=== PATIENT | male | born 1985 | race Caucasian/White ===

== ENCOUNTER 2017-04-26 11:17 | Emergency (ER) | payer SELFPAY ==
[~2017-04-26] VITALS: Ht 162.6 cm; Wt 74.9 kg
[~2017-04-26 11:17] MED LIST: ATEN25TA PO; CEFP250T2 PO; CIPR500T4 PO; CLON1TAB36 PO; DIVA250T4 PO; HYOS-6 PO; INDO25CA PO; INDO50CA PO; KETO75CA PO; LEVE500T PO; LURA40TA PO; METO25TA PO; MTP25TSR PO; NAPR-243 PO; OXYC-473 PO; PENI500T PO; PHEN-639 PO; PRD20T PO; SULF1TAB35 PO; TAMS0.4C98 PO; TRAM50TA2 PO; flexeril PO
--- OUTSIDE RECORDS SUMMARY | 2017-04-26 11:24 | XMS REPORT | Continuity of Care Document ---
Author Author [employer] Organization [facility] Address Unknown Phone Unavailable Care Team Providers Care Bronze Plater Name Role Phone [employer] Unavailable Unavailable Problems Medications Allergies, Adverse Reactions, Alerts Immunizations Results Vital Signs Encounters Location Location Details Encounter Type Encounter Number Reason For Visit Attending Provider ADM Date DC Date Status Source O Active [facility] Procedures Plan of Care Social History Assessment and Plan Family History Advance Directives Functional Status
--- OUTSIDE RECORDS SUMMARY | 2017-04-26 11:24 | XMS REPORT ---
Author Author MOLINA DUARTE [facility] [employer] Address Unknown Phone Unavailable Care Team Providers Care Manager Hospitality Name Role Phone MOLINA DUARTE CP Unavailable Allergies, Adverse Reactions, Alerts Substance Reaction Event Type N.K.D.A. 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 Active Problem Essential hypertension I10 Active Problem Pyelonephritis N12 Active Assessment Chest pain R07.9 Active Assessment Essential hypertension I10 Active Problem Attention deficit disorder of childhood without mention of hyperactivity 314.00 Active Medications Medication Code System Code Instructions Start Date End Date Status Dosage Atenolol [facility] NAMED [facility] [address]-09 50mg Orally twice a day 1 tablet Procedures Procedure Coding System Code Date COMPREHEN METABOLIC PANEL CPT-4 03192 Mar 25, 2015 ASSAY THYROID STIM HORMONE CPT-4 26325 Mar 25, 2015 COMPLETE CBC W/AUTO DIFF WBC CPT-4 52381 Mar 25, 2015 Office Visit, Est Pt., Level 4 CPT-4 72976 Mar 25, 2015 LIPID PANEL CPT-4 98932 Mar 25, 2015 ASSAY OF MAGNESIUM CPT-4 73189 Mar 25, 2015 VENIPUNCT, ROUTINE* CPT-4 79645 Mar 25, 2015 ELECTROCARDIOGRAM, TRACING CPT-4 00558 Mar 25, 2015 Vital Signs Date/Time: Mar 25, 2015 Temperature 98.3 F Weight 170.2 lbs Height 65.5 in BMI 27.89 Index Blood Pressure Diastolic 90 mmHg Blood Pressure Systolic 118 mmHg Cardiac Monitoring Heart Rate 76 bpm Results Name Result Date Reference Range Unit Abnormality Flag MAGNESIUM, SERUM ----Magnesium, Serum 1.9 12475121 1.6-2.3 mg/dL TSH ----TSH 2.450 [id number] 0.450-4.500 uIU/mL ROUTINE VENIPUNCTURE EKG, TRACING (IN-HOUSE) CMP ----BUN/Creatinine Ratio 15 20150325-19 ----eGFR If Africn Am 135 [id number] >59 mL/min/1.73 ----eGFR If NonAfricn Am 116 [id number] >59 mL/min/1.73 ----Creatinine, Serum 0.89 20150325 0.76-1.27 mg/dL ----Chloride, Serum 101 20150325 97-108 mmol/L ----Potassium, Serum 4.4 20150325 3.5-5.2 mmol/L ----Sodium, Serum 142 20150325 134-144 mmol/L ----Protein, Total, Serum 7.4 20150325 6.0-8.5 g/dL ----Albumin, Serum 5.1 20150325 3.5-5.5 g/dL ----Globulin, Total 2.3 20150325 1.5-4.5 g/dL ----A/G Ratio 2.2 20150325 1.1-2.5 ----BUN 13 20150325 6-20 mg/dL ----Glucose, Serum 81 20150325 65-99 mg/dL ----Carbon Dioxide, Total 25 20150325 18-29 mmol/L ----Calcium, Serum 9.8 20150325 8.7-10.2 mg/dL ----AST (SGOT) 20 20150325 0-40 IU/L ----ALT (SGPT) 15 20150325 0-44 IU/L ----Bilirubin, Total 0.4 20150325 0.0-1.2 mg/dL ----Alkaline Phosphatase, S 67 20150325 39-117 IU/L CBC ----RDW 13.9 20150325 12.3-15.4 % ----MCHC 33.3 26972252 31.5-35.7 g/dL ----MCH 27.6 [id number] 26.6-33.0 pg ----MCV 83 20150325 79-97 fL ----Hematocrit 46.3 20150325 37.5-51.0 % ----Hemoglobin 15.4 20150325 12.6-17.7 g/dL ----Immature Granulocytes 0 95687749 % ----RBC 5.58 [id number] 4.14-5.80 x10E6/uL ----WBC 6.8 09886543 3.4-10.8 x10E3/uL ----Immature Grans (Abs) 0.0 97475975 0.0-0.1 x10E3/uL ----Eos (Absolute) 0.2 28321153 0.0-0.4 x10E3/uL ----Basos 1 04507692 % ----Baso (Absolute) 0.1 14209018 0.0-0.2 x10E3/uL ----Neutrophils (Absolute) 3.3 20653680 1.4-7.0 x10E3/uL ----Lymphs (Absolute) 2.6 96744817 0.7-3.1 x10E3/uL ----Monocytes(Absolute) 0.6 00132480 0.1-0.9 x10E3/uL ----Neutrophils 50 87865471 % ----Lymphs 38 43047674 % ----Monocytes 8 51360082 % ----Eos 3 67010669 % ----Platelets 385 28996605 150-379 x10E3/uL H LIPID PANEL ----HDL Cholesterol 28 17044695 >39 mg/dL L ----Triglycerides 405 45239348 0-149 mg/dL H ----Cholesterol, Total 202 40508127 100-199 mg/dL H Summary Purpose eClinicalWorks Submission
--- OUTSIDE RECORDS SUMMARY | 2017-04-26 11:24 | XMS REPORT | Clinical Summary ---
Author Author [facility] Organization [facility] Address Unknown Phone Unavailable Care Team Providers Care Sports Medicine Trainer Name Role Phone PCP Unavailable Source Comments Some departments are not documenting in the electronic medical record. If you do not see the information that you expected, contact Release of Information in the Health Information Management department at [phone] for further assistance in locating additional records.[facility] Allergies No Known Allergies Current Medications Prescription Sig. Disp. Refills Start End Date Status Date omega 7-fkv-fbw-fish oil Take 1 Cap by mouth twice Active 300-1,000 mg capsule daily. acetaminophen (TYLENOL) Take 2 Tabs by mouth 30 Tab 1 05/12/19 Active 325 mg tablet every 6 hours as needed. 16 hyoscyamine (ANASPAZ; Place 1 Tab under tongue 30 Tab 0 05/12/19 Active NULEV; SYMAX FASTABS; every 4 hours as needed. 16 HYOMAX-FT; ED-SPAZ; OSCIMIN) 0.125 mg rapid dissolve tablet senna/docusate Take 1 Tab by mouth twice 60 Tab 1 05/12/19 Active (SENOKOT-S) 8.6/50 mg daily. 16 tablet nicotine (NICODERM CQ Apply 1 Patch to top of 28 Patch 0 05/12/19 Active STEP 3) 7 mg/day patch skin as directed daily. 16 oxyCODONE (ROXICODONE) 5 Take 1-2 Tabs by mouth 20 Tab 0 05/15/19 Active mg tablet every 4 hours as needed 16 for Pain Active Problems Problem Noted Date Kidney stone 05/10/2015 Tobacco abuse 05/05/2015 Kidney stones 04/29/2015 Overview: Long history of nephrolithiasis that he passed spontaneously and recurrent episodes of pyelonephritis 05/11/15: Right PCNL for Right staghorn calculus - Stone analysis - 60% calcium phosphate - 20% struvite - 20% calcium carbonate 06/14/15: KUB w/o recurrent stone; patient doing well L ast Assessment & Plan: Recovering well from his procedure. KUB today shows no evidence of recurrent stone. He has a long history of recurrent nephrolithiasis and has never had a formal metabolic workup. - Return to clinic 4 months with a KUB, BMP, and Litholink prior. Resolved Problems Problem Noted Date Resolved Date Pyelonephritis 05/14/2015 05/15/2015 Immunizations Name Dates Previously Given Next Due Pneumococcal Vaccine 05/14/2015 (23-[facility]ona Adult) Family History Medical History Relation Name Comments Neurologic Disorder Father Urolithiasis Father Urolithiasis Mother Cancer Paternal Grandfather Hypertension Paternal Grandfather Cancer Paternal Grandmother Relation Name Status Comments Father Alive Mother Paternal Grandfather Paternal Grandmother Social History Tobacco Use Types Packs/Day Years Used Date Current Every Day Smoker Cigarettes 0.5 15 Smokeless Tobacco: Never Used Alcohol Use Drinks/Week oz/Week Comments No 0-2 Shots of 0.0 - 1.2 rarely liquor Sex Assigned at Date Recorded Not on file Last Filed Vital Signs Vital Sign Reading Time Taken Blood Pressure 107/66 06/14/2015 2:04 PM APARTMENT COMMUNITY MANAGER Pulse 63 06/14/2015 2:04 PM APARTMENT COMMUNITY MANAGER Temperature 36.8 C (98.2 F) 05/15/2015 11:00 AM APARTMENT COMMUNITY MANAGER Respiratory Rate - - Oxygen Saturation 97% 05/15/2015 11:00 AM APARTMENT COMMUNITY MANAGER Inhaled Oxygen - - Concentration Weight 71.9 kg (158 lb 9.6 oz) 06/14/2015 2:04 PM APARTMENT COMMUNITY MANAGER Height 162.6 cm (5' 4") 06/14/2015 2:04 PM APARTMENT COMMUNITY MANAGER Body Mass Index 27.22 06/14/2015 2:04 PM APARTMENT COMMUNITY MANAGER Plan of Treatment Health Maintenance Due Date Last Done Comments PHYSICAL (COMPREHENSIVE) 1993 EXAM PERTUSSIS VACCINE 1997 TETANUS VACCINE 06/28/2003 INFLUENZA VACCINE 11/07/2016 Results Not on filefrom Last 3 Months
--- OUTSIDE RECORDS SUMMARY | 2017-04-26 11:25 | XMS REPORT ---
Author Author MOLINA DUARTE Organization [employer] Address Unknown Phone Unavailable Care Team Providers Care Librarian Special Library Name Role Phone MOLINA DUARTE CP Unavailable Allergies No Known Allergies Problems Problem Type Condition Code Onset Dates Condition Status Problem Attention deficit disorder of childhood without mention of hyperactivity 314.00 Active Problem Essential hypertension, benign 401.1 Active Problem Other forms of epilepsy and recurrent seizures, without mention of intractable epilepsy 345.80 Active Problem Staghorn calculus N20.0 Active Problem Essential hypertension I10 Active Problem Low back pain M54.5 Active Problem Other, mixed, or unspecified nondependent drug abuse, 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
--- OUTSIDE RECORDS SUMMARY | 2017-04-26 11:25 | XMS REPORT ---
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1 Active Problem Unspecified acute endocarditis 421.9 Active Medications Medication Code System Code Instructions Start Date End Date Status Dosage Atenolol [facility] [address]-06 50mg Orally twice a day 1 tablet Results No Known Results Summary Purpose [employer]ClinicalWorks Submission
--- OUTSIDE RECORDS SUMMARY | 2017-04-26 11:25 | XMS REPORT ---
Author Author MOLINA DUARTE Organization [employer] Address Unknown Phone Unavailable Care Team Providers Care Management Sme Name Role Phone MOLINA DUARTE CP Unavailable Allergies No Known Allergies Problems Problem Type Condition Code Onset Dates Condition Status Problem Other forms of epilepsy and recurrent seizures, without mention of intractable epilepsy 345.80 Active Problem Unspecified acute endocarditis 421.9 Active Problem Essential hypertension, benign 401.1 Active Problem Attention deficit disorder of childhood without mention of hyperactivity 314.00 Active Problem Low back pain M54.5 Active Problem Staghorn calculus N20.0 Active Problem Chest pain R07.9 Active Problem Schizoaffective disorder, unspecified 295.70 Active Problem Other, mixed, or unspecified nondependent drug abuse, 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
--- OUTSIDE RECORDS SUMMARY | 2017-04-26 11:25 | XMS REPORT ---
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
--- OUTSIDE RECORDS SUMMARY | 2017-04-26 11:25 | XMS REPORT ---
Author Author MOLINA DUARTE Organization [employer] Address Unknown Phone Unavailable Care Team Providers Care Binder Roller Name Role Phone MOLINA DUARTE CP Unavailable [...] Problem Schizoaffective disorder, unspecified 295.70 Active Medications Medication Code System Code Instructions Start Date End Date Status Dosage Ibuprofen [facility] [address]-90 800 MG Orally Three times a day Jan 21, 2015 Mar 22, 2015 1 tablet Results No Known Results Summary Purpose eClinicalWorks Submission
--- OUTSIDE RECORDS SUMMARY | 2017-04-26 11:26 | XMS REPORT ---
Author Author MOLINA DUARTE Organization [employer] Address Unknown Phone Unavailable Care Team Providers Care Roping Machine Tender Name Role Phone FELICIA MOLINA CP Unavailable Allergies, Adverse Reactions, Alerts Substance [...] Active Problem Schizoaffective disorder, unspecified 295.70 Active Assessment Pyelonephritis N12 Active Assessment Essential hypertension I10 Active Assessment Staghorn calculus N20.0 Active Assessment Low back pain M54.5 Active Medications Medication Code System Code Instructions Start Date End Date Status Dosage Cipro [facility] [address]-15 500 MG Orally Twice a day Jan 20, 2015 Jan 30, 2015 1 tablet Atenolol [facility] [address]-10 25 MG Orally twice a day 1 tablet Procedures Procedure Coding System Code Date URINE CULTURE/COLONY COUNT CPT-4 88131 Jan 20, 2015 Office Visit, Est Pt., Level 4 CPT-4 88876 Jan 20, 2015 URINALYSIS, AUTO, W/O SCOPE CPT-4 92817 Jan 20, 2015 Vital Signs Date/Time: Jan 20, 2015 Temperature 98.1 F Weight 179.2 lbs Height 65.5 in BMI 29.36 Index Blood Pressure Diastolic 88 mmHg Blood Pressure Systolic 124 mmHg Cardiac Monitoring Heart Rate 80 bpm Results Name Result Date Reference Range Unit Abnormality Flag UA LONG DIP (IN HOUSE) Summary Purpose eClinicalWorks Submission
--- OUTSIDE RECORDS SUMMARY | 2017-04-26 11:26 | XMS REPORT ---
Author Author MOLINA DUARTE [facility] [employer] Address Unknown Phone Unavailable Care Team Providers Care Repairer Switchgear Name Role Phone MOLINA DUARTE CP Unavailable Allergies No Known Allergies Problems Problem Type Condition Code Onset Dates Condition Status Problem Schizoaffective disorder, unspecified 295.70 Active Problem Essential hypertension I10 Active Problem Pyelonephritis N12 Active Problem Hypertension I10 Active Problem Hyperlipemia E78.5 Active Problem Seizure disorder G40.909 Active Problem Low back pain M54.5 Active Problem Staghorn calculus N20.0 Active Problem Hyperlipidemia E78.5 Active Problem Chest pain R07.9 Active Problem Other forms of epilepsy and recurrent seizures, without mention of intractable epilepsy 345.80 Active Problem Essential hypertension, benign 401.1 Active Problem Unspecified acute endocarditis 421.9 Active Problem Attention deficit disorder of childhood without mention of hyperactivity 314.00 Active Problem Other, mixed, or unspecified nondependent drug abuse, 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
--- OUTSIDE RECORDS SUMMARY | 2017-04-26 11:26 | XMS REPORT | Continuity of Care Document ---
Author Author [facility] Address Unknown Phone Unavailable Allergies Active Description Code Type Severity Reaction Onset Reported/Identified Relationship to Patient Clinical Status Yes No Known Drug Allergies [id number] Drug Allergy Unknown N/A 07/22/2013 Medications There is no data. Problems Date Dx Coded Attending Type Code Diagnosis Diagnosed By [facility]/26/2013 [facility] 295.70 P SCHIZO AFFECTIVE 06/26/2013 GRAZYNA WILLIAM MD 295.70 P SCHIZO AFFECTIVE 06/26/2013 ARACELI INMAN DO 295.70 P SCHIZO AFFECTIVE 06/26/2013 GRAZYNA WILLIAM MD 295.70 P SCHIZO AFFECTIVE 06/26/2013 LOIDAPALMIRA RIVERA APRN 295.70 P SCHIZO AFFECTIVE 06/26/2013 MOLINA DUARTE APRN 295.70 P SCHIZO AFFECTIVE 06/26/2013 GRAZYNA WILLIAM MD 295.70 P SCHIZO AFFECTIVE 06/26/2013 LOIDA DUPLICATING MACHINE MECHANIC, PALMIRA 295.70 P SCHIZO AFFECTIVE 06/26/2013 LOIDA ARABELLA PALMIRA 295.70 P SCHIZO AFFECTIVE 07/22/2013 MARV DUFFY MD Ot 401.9 HYPERTENSION NOS 07/22/2013 MARV DUFFY MD R Ot 423.9 PERICARDIAL DISEASE NOS 07/22/2013 MARV DUFFY MD R Ot 786.50 CHEST PAIN NOS 07/31/2013 ARACELI INMAN DO 305.93 NONDEPENDENT OTHER MIXED OR UNSPECIFIED DRUG ABUSE IN REMISSION 07/31/2013 ARACELI INMAN DO 401.1 HYPERTENSION, BENIGN ESSENTIAL 07/31/2013 ARACELI INMAN DO 421.9 ACUTE ENDOCARDITIS UNSPECIFIED 07/31/2013 GRAZYNA WILLIAM MD 305.93 NONDEPENDENT OTHER MIXED OR UNSPECIFIED DRUG ABUSE IN REMISSION 07/31/2013 GRAZYNA WILLIAM MD 401.1 HYPERTENSION, BENIGN ESSENTIAL 07/31/2013 GRAZYNA WILLIAM MD 421.9 ACUTE ENDOCARDITIS UNSPECIFIED 07/31/2013 LOIDA DUPLICATING MACHINE MECHANIC, PALMIRA 305.93 NONDEPENDENT OTHER MIXED OR UNSPECIFIED DRUG ABUSE IN REMISSION 07/31/2013 LOIDA BELL PALMIRA 401.1 HYPERTENSION, BENIGN ESSENTIAL 07/31/2013 LOIDA DUPLICATING MACHINE MECHANIC, PALMIRA 421.9 ACUTE ENDOCARDITIS UNSPECIFIED 07/31/2013 MADL DUPLICATING MACHINE MECHANIC, MOLINA L 305.93 NONDEPENDENT OTHER MIXED OR UNSPECIFIED DRUG ABUSE IN REMISSION 07/31/2013 MADL DUPLICATING MACHINE MECHANIC, MOLINA L 401.1 HYPERTENSION, BENIGN ESSENTIAL 07/31/2013 MADL DUPLICATING MACHINE MECHANIC, MOLINA L 421.9 ACUTE ENDOCARDITIS UNSPECIFIED 07/31/2013 GRAZYNA WILLIAM MD 305.93 NONDEPENDENT OTHER MIXED OR UNSPECIFIED DRUG ABUSE IN REMISSION 07/31/2013 GRAZYNA WILLIAM MD 401.1 HYPERTENSION, BENIGN ESSENTIAL 07/31/2013 GRAZYNA WILLIAM MD 421.9 ACUTE ENDOCARDITIS UNSPECIFIED 07/31/2013 LOIDA DUPLICATING MACHINE MECHANIC, PALMIRA 305.93 NONDEPENDENT OTHER MIXED OR UNSPECIFIED DRUG ABUSE IN REMISSION 07/31/2013 LOIDA BELL PALMIRA 401.1 HYPERTENSION, BENIGN ESSENTIAL 07/31/2013 LOIDA DUPLICATING MACHINE MECHANIC, PALMIRA 421.9 ACUTE ENDOCARDITIS UNSPECIFIED 07/31/2013 LOIDA DUPLICATING MACHINE MECHANIC, PALMIRA 305.93 NONDEPENDENT OTHER MIXED OR UNSPECIFIED DRUG ABUSE IN REMISSION 07/31/2013 LOIDA BELL PALMIRA 401.1 HYPERTENSION, BENIGN ESSENTIAL 07/31/2013 LOIDA BELL PALMIRA 421.9 ACUTE ENDOCARDITIS UNSPECIFIED 10/29/2013 GRAZYNA WILLIAM MD Ot 295.70 SCHIZOAFFECTIVE DISORDER, UNSPECIFIED 10/29/2013 GRAZYNA WILLIAM MD Ot 305.00 ALCOHOL ABUSE-UNSPEC 10/29/2013 GRAZYNA WILLIAM MD Ot 305.1 TOBACCO USE DISORDER 10/29/2013 GRAZYNA WILLIAM MD Ot 305.20 CANNABIS ABUSE-UNSPEC 10/29/2013 GRAZYNA WILLIAM MD Ot 401.9 HYPERTENSION NOS 10/29/2013 GRAZYNA WILLIAM MD Ot 780.39 OTHER CONVULSIONS 10/29/2013 GRAZYNA WILLIAM MD Ot V15.81 HX OF PAST NONCOMPLIANCE 10/29/2013 GRAZYNA WILLIAM MD Ot V60.0 LACK OF HOUSING 10/30/2013 MOLINA DUARTE APRN 345.80 OTHER FORMS OF EPILEPSY AND RECURRENT SEIZURES WITHOUT MENTION OF INTRACTABLE EPILEPSY 10/30/2013 STEWART DIXON, GRAZYNA 345.80 OTHER FORMS OF EPILEPSY AND RECURRENT SEIZURES WITHOUT MENTION OF INTRACTABLE EPILEPSY 10/30/2013 PALMIRA MARISCAL APRN 345.80 OTHER FORMS OF EPILEPSY AND RECURRENT SEIZURES WITHOUT MENTION OF INTRACTABLE EPILEPSY 10/30/2013 PALMIRA MARISCAL APRN 345.80 OTHER FORMS OF EPILEPSY AND RECURRENT SEIZURES WITHOUT MENTION OF INTRACTABLE EPILEPSY 04/07/2014 KAYLI MARISCAL APRNETTE 314.00 ADHD INATTENTIVE 04/07/2014 KAYLI MARISCAL APRNETTE 314.00 ADHD INATTENTIVE 08/24/2014 TOVA BROWN DO Ot 521.00 UNSPEC DENTAL CARIES 08/24/2014 TOVA BROWN DO Ot 522.5 PERIAPICAL ABSCESS 08/24/2014 TOVA BROWN DO Ot 525.9 DENTAL DISORDER NOS 09/30/2014 FRANCESCA FROST DO Ot 590.80 PYELONEPHRITIS NOS 09/30/2014 FRANCESCA FROST DO Ot 724.5 BACKACHE NOS 04/22/2015 IMAN BULLOCK Ot F17.210 NICOTINE DEPENDENCE, CIGARETTES, UNCOMPL 04/22/2015 IMAN BULLOCK Ot K57.90 DVRTCLOS OF INTEST, PART UNSP, W/O PERF 04/22/2015 IMAN BULLOCK Ot N20.0 CALCULUS OF KIDNEY 04/22/2015 IMAN BULLOCK Ot N39.0 URINARY TRACT INFECTION, SITE NOT SPECIF 05/14/2015 ESE OLIVER MD Ot F17.210 NICOTINE DEPENDENCE, CIGARETTES, UNCOMPL 05/14/2015 ESE OLIVER MD Ot N12 TUBULO-INTERSTITIAL NEPHRITIS, NOT SPCF 05/14/2015 ESE OLIVER MD, Ot T81.4XXA INFECTION FOLLOWING A PROCEDURE, INITIAL 08/09/2015 MOLINA DUARTEP Ot N20.0 CALCULUS OF KIDNEY 08/09/2015 GIGI FIELDS DUPLICATING MACHINE MECHANIC Ot R56.9 UNSPECIFIED CONVULSIONS 08/10/2015 GIGI FIELDS DUPLICATING MACHINE MECHANIC Ot R56.9 UNSPECIFIED CONVULSIONS 09/13/2015 MOLINA DUARTE PERFORMANCE SPECIALIST Ot N20.0 CALCULUS OF KIDNEY 12/07/2015 MOLINA DUARTE PERFORMANCE SPECIALIST Ot N20.0 CALCULUS OF KIDNEY 12/07/2015 GIGI FIELDS APRN Ot F17.210 NICOTINE DEPENDENCE, CIGARETTES, UNCOMPL 12/07/2015 GIGI FIELDS APRN Ot M54.16 RADICULOPATHY, LUMBAR REGION 12/07/2015 GIGI FIELDS APRN Ot M79.605 PAIN IN LEFT LEG 12/08/2015 GIGI FIELDS APRN Ot F17.210 NICOTINE DEPENDENCE, CIGARETTES, UNCOMPL 12/08/2015 GIGI FIELDS APRN Ot M54.16 RADICULOPATHY, LUMBAR REGION 12/08/2015 GIGI FIELDS APRN Ot M79.605 PAIN IN LEFT LEG Procedures Code [place] [address] PSYCH DIAGNOSTIC EVALUATION 06/30/2013 29284 ROUTINE VENIPUNCTURE 07/31/2013 90186 URINE DRUG SCREEN (IN-HOUSE ) 07/31/2013 32486 CBC 07/31/2013 9627489 GFR CALC (RESULT ONLY) 07/31/2013 49718 CMP 07/31/2013 57507 HEPATITIS PROFILE 07/31/2013 30128 ROUTINE VENIPUNCTURE 10/30/2013 21963 AMERITOX 10/30/2013 1008258 GFR CALC (RESULT ONLY) 10/30/2013 95375 CMP 10/30/2013 31984 PSYCH DIAGNOSTIC EVALUATION 04/07/2014 Results There is no data. Encounters ACCT No. Visit Date/Time Discharge Status Pt. Type Provider Facility Loc./Unit Complaint [id number] 07/22/2013 14:04:00 07/22/2013 23:59:59 CLS Outpatient NIKKY FERNANDES DDS [id number] 04/07/2014 08:50:00 04/07/2014 23:59:59 CLS Outpatient PALMIRA MARISCAL APRN [id number] 04/07/2014 08:50:00 04/07/2014 23:59:59 CLS Outpatient PALMIRA MARISCAL APRN [id number] 11/11/2013 07:28:00 11/11/2013 23:59:59 CLS Outpatient GRAZYNA WILLIAM MD [id number] 10/30/2013 08:19:00 10/30/2013 23:59:59 CLS Outpatient MOLINA DUARTE APRN [id number] 08/28/2013 14:40:00 08/28/2013 23:59:59 CLS Outpatient GRAZYNA WILLIAM MD [id number] 08/28/2013 14:40:00 08/28/2013 23:59:59 CLS Outpatient KAYLI MARISCAL APRNETTE [id number] 07/31/2013 09:29:00 07/31/2013 23:59:59 CLS Outpatient ARACELI INMAN DO [id number] 07/29/2013 12:30:00 07/29/2013 23:59:59 CLS Outpatient GRAZYNA WILLIAM MD [id number] 06/26/2013 16:00:00 06/26/2013 23:59:59 CLS Outpatient BRITTON GOMESDELMI [id number] 12/07/2015 17:22:00 12/07/2015 19:05:00 DIS Emergency GIGI FIELDS APRN [facility] ER L SIDE LOWER BACK/LEG PAIN [id number] 08/09/2015 12:49:00 08/09/2015 14:24:00 DIS Emergency GIGI FIELDS APRN [facility] ER SEIZURE [id number] 05/13/2015 16:43:00 05/14/2015 01:42:00 DIS Emergency ESE OLIVER MD [facility] ER FEVER [id number] 04/22/2015 19:10:00 04/22/2015 22:34:00 DIS Emergency IMAN BULLOCK [facility] ER FLANK PAIN;POSS KIDNEY STONE [id number] 01/21/2015 14:33:00 01/21/2015 23:59:59 CLS Outpatient MADLMOLINA PERFORMANCE SPECIALIST [facility] RAD LBP, [id number] 09/30/2014 03:46:00 09/30/2014 05:07:00 DIS Emergency FRANCESCA FROST DO [facility] ER BACK PAIN [id number] 08/24/2014 09:29:00 08/24/2014 09:57:00 DIS Emergency TOVA BROWN DO [facility] ER DENTAL PAIN [id number] 10/28/2013 14:31:00 10/29/2013 11:05:00 DIS Inpatient STEWART DIXON GRAZYNA Leone [facility] 4TH SEIZURES [id number] 07/22/2013 16:59:00 07/22/2013 18:53:00 DIS Emergency TATI DIXON, MARV Kenyon [facility] ER HIGH BLOOD PRESSURE
--- OUTSIDE RECORDS SUMMARY | 2017-04-26 11:26 | XMS REPORT ---
Author Author MOLINA DUARTE Organization [employer] Address Unknown Phone Unavailable Care Team Providers Care Cluster Bore Operator Name Role Phone MOLINA DUARTE CP Unavailable Allergies No Known Allergies Problems Problem Type Condition Code Onset Dates Condition Status Problem Attention deficit disorder of childhood without mention of hyperactivity 314.00 Active Problem Essential hypertension, benign 401.1 Active Problem Other forms of epilepsy and recurrent seizures, without mention of intractable epilepsy 345.80 Active Assessment Pyelonephritis N12 Active Problem Staghorn calculus N20.0 Active Problem Essential hypertension I10 Active Problem Low back pain M54.5 Active Problem Other, mixed, or unspecified nondependent drug abuse, 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
[2017-04-26 12:11] LABS: BASOPHILS % (AUTO) 0 % (0-10); EOSINOPHILS # (AUTO) 0.2 10^3/uL (0.0-0.3); EOSINOPHILS % (AUTO) 2 % (0-10); HEMATOCRIT 42 % (40-54); HEMOGLOBIN 14.9 G/DL (13.3-17.7); LYMPHOCYTES # (AUTO) 3.2 X 10^3 (1.0-4.0); LYMPHOCYTES % (AUTO) 35 % (12-44); MEAN CORPUSCULAR HEMOGLOBIN 29 PG (25-34); MEAN CORPUSCULAR HGB CONC 35 G/DL (32-36); MEAN CORPUSCULAR VOLUME 82 FL (80-99); MEAN PLATELET VOLUME 9.1 FL (7.4-10.4); MONOCYTES # (AUTO) 0.7 X 10^3 (0.0-1.0); MONOCYTES % (AUTO) 7 % (0-12); NEUTROPHILS # (AUTO) 5.1 X 10^3 (1.8-7.8); NEUTROPHILS % (AUTO) 56 % (42-75); PLATELET COUNT 387 10^3/uL (130-400); RED BLOOD COUNT 5.15 10^6/uL (4.35-5.85); RED CELL DISTRIBUTION WIDTH 12.7 % (10.0-14.5); WHITE BLOOD COUNT 9.2 10^3/uL (4.3-11.0)
[2017-04-26 12:22] LABS: INR 0.9 (0.8-1.4); PROTHROMBIN TIME PATIENT 12.4 SEC (12.2-14.7)
[2017-04-26 12:23] LABS: ALANINE AMINOTRANSFERASE 24 U/L (0-55); ALBUMIN 4.8 GM/DL (3.2-4.5); ALKALINE PHOSPHATASE 68 U/L (40-136); AMYLASE 44 U/L (25-125); BILIRUBIN,TOTAL 0.5 MG/DL (0.1-1.0); BUN/CREATININE RATIO 21; CALCIUM 9.5 MG/DL (8.5-10.1); CARBON DIOXIDE 22 MMOL/L (21-32); CHLORIDE 105 MMOL/L (98-107); CREATININE SERUM 0.85 MG/DL (0.60-1.30); GFR ESTIMATED > 60; GLUCOSE 96 MG/DL (70-105); MAGNESIUM 2.1 MG/DL (1.8-2.4); POTASSIUM 3.5 MMOL/L (3.6-5.0); SODIUM 139 MMOL/L (135-145); TOTAL PROTEIN 7.6 GM/DL (6.4-8.2)
--- NOTE | 2017-04-26 12:38 | Diagnostic Imaging Report ---
INDICATION: Hypertension. COMPARISON: 05/13/2015. FINDINGS: Upright portable view of the chest is obtained. Heart size is normal. The pulmonary vessels appear unremarkable. There is no pneumothorax, mediastinal widening, or pleural fluid demonstrated. The lungs are clear. IMPRESSION: Negative chest. Dictated by: Dictated on workstation # [id number]
[2017-04-26 12:44] LABS: TSH (THYROID ANALYZER) 0.88 UIU/ML (0.35-4.94)
[2017-04-26 12:55] LABS: BILIRUBIN,URINE NEGATIVE (NEGATIVE); CLARITY,URINE SLIGHTLY CLOUDY; COLOR,URINE YELLOW; GLUCOSE, URINE (UA) NEGATIVE (NEGATIVE); KETONES,URINE NEGATIVE (NEGATIVE); LEUKOCYTE ESTERASE ,URINE NEGATIVE (NEGATIVE); NITRITE,URINE NEGATIVE (NEGATIVE); PH,URINE 8 (5-9); PROTEIN,URINE NEGATIVE (NEGATIVE); UROBILINOGEN,URINE NORMAL (NORMAL)
--- NOTE | 2017-04-26 13:07 | Diagnostic Imaging Report ---
EXAMINATION: CT head without contrast. TECHNIQUE: Axial noncontrast CT head images were obtained. DATE: April 26, 2017. COMPARISON: CT head August 09, 2015. INDICATION: 31-year-old male, hypertension. Left-sided numbness and weakness. FINDINGS: The ventricles and cerebral spinal fluid spaces are of normal size and configuration for the patient's age. There is no mass effect or midline shift. There is no acute intracranial hemorrhage. There is no abnormal extra-axial fluid collection. The visualized portions of the paranasal sinuses, mastoid air cells and middle ears are well aerated. IMPRESSION: 1. No identified acute intracranial abnormality. Dictated by: Dictated on workstation # [id number]
[2017-04-26 13:13] LABS: AMPHETAMINE SCREEN, URINE NEGATIVE (NEGATIVE); BARBITURATE SCREEN URINE NEGATIVE (NEGATIVE); BENZODIAZEPINES SCREEN URINE NEGATIVE (NEGATIVE); CANNABINOID SCREEN, URINE POSITIVE (NEGATIVE); COCAINE SCREEN URINE NEGATIVE (NEGATIVE); METHADONE STAT NEGATIVE (NEGATIVE); METHAMPHETAMINE SCREEN URINE S NEGATIVE (NEGATIVE); OPIATE SCREEN URINE NEGATIVE (NEGATIVE); OXYCODONE STAT NEGATIVE (NEGATIVE); PROPOXYPHENE STAT NEGATIVE (NEGATIVE); TRICYCLIC ANTIDEPRESSANTS SCRE NEGATIVE (NEGATIVE)
[2017-04-26 13:21] LABS: AMORPHOUS SEDIMENT,UR LARGE AMOR PHOSPHATE /LPF; BACTERIA,URINE NEGATIVE /HPF; RBC,URINE RARE /HPF; WBC,URINE RARE /HPF
--- NOTE | 2017-04-26 13:37 | ED General ---
General Chief Complaint: Neurological Problems Stated Complaint: L SIDE NUMB HIGH BP Nursing Triage Note: PT STATES HX OF HYPERTENSION, FELT LIKE HIS PRESSURE WAS HIGH THIS A.M., CALLED HIS GIRLFRIEND TO PICK HIM UP FROM WORK AND THEN STARTED FEELING NUMB FROM THE WAISTE UP ON THE LT SIDE, NUMBNESS RESOLVED MOSTLY BUT STILL SOME IN LT HAND, ARM AND FACE. Nursing Sepsis Screen: No Definite Risk Allergies and Home Medications Allergies Coded Allergies: No Known Drug Allergies (Unverified , 07/22/13) Home Medications Prednisone 20 Mg Tab, 40 MG PO DAILY, #8 Take 3 tabs(60mg)daily, decrease by 1/2 tab(10mg)daily. Prescribed by: GIGI FIELDS on 12/07/151829 [flexeril] , 10 MG PO BID PRN for PAIN, #30 Prescribed by: GIGI FIELDS on 12/07/151829 Past Ualupna-Eajjav-Pfjpsz Hx Patient Social History Alcohol Use: Denies Use Recreational Drug Use: No Smoking Status: Current Everyday Smoker Type Used: Cigarettes Recent Foreign Travel: No Contact w/Someone Who Travel: No Recent Infectious Disease Expo: No Recent Hopitalizations: No Seasonal Allergies Seasonal Allergies: No Surgeries History of Surgeries: Yes (KIDNEY BIOPSY/I&D OF MRSA ABSCESS RIGHT LOWER LEG, LEFT HAND SURGERY) Surgeries: Appendectomy, Renal Respiratory History of Respiratory Disorde: Yes Respiratory Disorders: Pneumonia Cardiovascular History of Cardiac Disorders: Yes Cardiac Disorders: Hypertension, Pericarditis Neurological History of Neurological Disord: Yes Neurological Disorders: Headaches /Migraines, Seizure Disorder Reproductive System Hx Reproductive Disorders: No Genitourinary History of Genitourinary Disor: No Genitourinary Disorders: Kidney Stones Gastrointestinal History of Gastrointestinal Di: Yes Gastrointestinal Disorders: Irritable Bowel Musculoskeletal History of Musculoskeletal Dis: No Endocrine History of Endocrine Disorders: No Cancer History of Cancer: No Psychosocial History of Psychiatric Problem: Yes Behavioral Health Disorders: Pseudo Seizures, Anxiety, Bipolar, Schizophrenia Integumentary History of Skin or Integumenta: No Blood Transfusions History of Blood Disorders: No Family Medical History Significant Family History: No Pertinent Family Hx Family Medial History: Cancer 19 FATHER (THROAT) GRANDMOTHER (COLON CERVICAL) GRANDFATHER (THROAT LUNG COLON) Cancer of colon GRANDMOTHER GRANDFATHER Family history: Cardiovascular disease 19 MOTHER Family history: Glaucoma 19 FATHER GRANDMOTHER GRANDFATHER Family history: Osteoporosis 19 MOTHER Seizure disorder 19 FATHER No Family History of: Abdominal aortic aneurysm Fords's disease Alcoholism Aphasia Cataract Chest pain Congenital heart disease Congestive heart failure Cystic fibrosis Dementia Dysphagia Family history: Allergy Family history: Alzheimer's disease Family history: Arthritis Family history: Asthma Family history: Breast disease Family history: Coronary thrombosis Family history: Diabetes mellitus Family history: Gastrointestinal disease Family history: Hypertension Family history: Thyroid disorder Headache Heart disease Hereditary disease History of - anemia History of - disorder History of - respiratory disease History of drug abuse Human immunodeficiency virus (HIV) seropositivity Hypercholesterolemia Infertile Kidney disease Malignant neoplasm of lung Myocardial infarction Parkinson's disease Prostate cancer Psychotic disorder Stroke Tuberculosis Visual impairment Physical Exam Vital Signs Vital Sign - Last 12Hours 04/26/17 11:28 Temp 98.8 Pulse 72 Resp 22 B/P (MAP) 138/92 (107) Pulse Ox 98 O2 Delivery Room Air Capillary Refill : Less Than 3 Seconds Progress/Results/Core Measures Suspected Sepsis Recent Fever Within 48 Hours: No Infection Criteria Present: None New/Unexplained Altered Menta: No Sepsis Screen: No Definite Risk Sepsis Diagnosis: SIRS Temperature:98.8 Pulse: 72 Respiratory Rate: 22 Laboratory Tests 04/26/17 11:45: White Blood Count 9.2 Blood Pressure 138 /92 Mean: 107 Laboratory Tests 04/26/17 11:45: Creatinine 0.85, INR Comment 0.9, Platelet Count 387, Total Bilirubin 0.5 Results/Orders Lab Results Laboratory Tests Test 04/26/17 11:45 04/26/17 12:50 Range/Units White Blood Count 9.2 4.3-11.0 10^3/uL Red Blood Count 5.15 4.35-5.85 10^6/uL Hemoglobin 14.9 13.3-17.7 G/DL Hematocrit 42 40-54 % Mean Corpuscular Volume 82 80-99 FL Mean Corpuscular Hemoglobin 29 25-34 PG Mean Corpuscular Hemoglobin Concent 35 32-36 G/DL Red Cell Distribution Width 12.7 10.0-14.5 % Platelet Count 387 130-400 10^3/uL Mean Platelet Volume 9.1 7.4-10.4 FL Neutrophils (%) (Auto) 56 42-75 % Lymphocytes (%) (Auto) 35 12-44 % Monocytes (%) (Auto) 7 0-12 % Eosinophils (%) (Auto) 2 0-10 % Basophils (%) (Auto) 0 0-10 % Neutrophils # (Auto) 5.1 1.8-7.8 X 10^3 Lymphocytes # (Auto) 3.2 1.0-4.0 X 10^3 Monocytes # (Auto) 0.7 0.0-1.0 X 10^3 Eosinophils # (Auto) 0.2 0.0-0.3 10^3/uL Basophils # (Auto) 0.0 0.0-0.1 10^3/uL Prothrombin Time 12.4 12.2-14.7 SEC INR Comment 0.9 0.8-1.4 Activated Partial Thromboplast Time 26 24-35 SEC Sodium Level 139 135-145 MMOL/L Potassium Level 3.5 L 3.6-5.0 MMOL/L Chloride Level 105 98-107 MMOL/L Carbon Dioxide Level 22 21-32 MMOL/L Anion Gap 12 5-14 MMOL/L Blood Urea Nitrogen 18 7-18 MG/DL Creatinine 0.85 0.60-1.30 MG/DL Estimat Glomerular Filtration Rate > 60 BUN/Creatinine Ratio 21 Glucose Level 96 70-105 MG/DL Calcium Level 9.5 8.5-10.1 MG/DL Magnesium Level 2.1 1.8-2.4 MG/DL Total Bilirubin 0.5 0.1-1.0 MG/DL Aspartate Amino Transf (AST/SGOT) 24 5-34 U/L Alanine Aminotransferase (ALT/SGPT) 24 0-55 U/L Alkaline Phosphatase 68 40-136 U/L Troponin I < 0.30 <0.30 NG/ML B-Type Natriuretic Peptide < 10.0 <100.0 PG/ML Total Protein 7.6 6.4-8.2 GM/DL Albumin 4.8 H 3.2-4.5 GM/DL Amylase Level 44 25-125 U/L TSH Mcclusky Testing 0.88 0.35-4.94 UIU/ML Serum Alcohol < 10 <10 MG/DL Urine Color YELLOW Urine Clarity SLIGHTLY CLOUDY Urine pH 8 5-9 Urine Specific Adams 1.015 L 1.016-1.022 Urine Protein NEGATIVE NEGATIVE Urine Glucose (UA) NEGATIVE NEGATIVE Urine Ketones NEGATIVE NEGATIVE Urine Nitrite NEGATIVE NEGATIVE Urine Bilirubin NEGATIVE NEGATIVE Urine Urobilinogen NORMAL NORMAL MG/DL Urine Leukocyte Esterase NEGATIVE NEGATIVE Urine RBC (Auto) NEGATIVE NEGATIVE Urine RBC RARE /HPF Urine WBC RARE /HPF Urine Crystals PRESENT H /LPF Urine Amorphous Sediment LARGE BRENT PHOSPHATE H /LPF Urine Bacteria NEGATIVE /HPF Urine Casts NONE /LPF Urine Mucus NEGATIVE /LPF Urine Culture Indicated NO Urine Opiates Screen NEGATIVE NEGATIVE Urine Oxycodone Screen NEGATIVE NEGATIVE Urine Methadone Screen NEGATIVE NEGATIVE Urine Propoxyphene Screen NEGATIVE NEGATIVE Urine Barbiturates Screen NEGATIVE NEGATIVE Ur Tricyclic Antidepressants Screen NEGATIVE NEGATIVE Urine Phencyclidine Screen NEGATIVE NEGATIVE Urine Amphetamines Screen NEGATIVE NEGATIVE Urine Methamphetamines Screen NEGATIVE NEGATIVE Urine Benzodiazepines Screen NEGATIVE NEGATIVE Urine Cocaine Screen NEGATIVE NEGATIVE Urine Cannabinoids Screen POSITIVE H NEGATIVE My Orders Orders - KEVINROGERA K DO Saline Lock/Iv-Start (04/26/17 12:01) Ekg Tracing (04/26/17 12:01) Monitor-Rhythm Ecg Trace Only (04/26/17 12:01) Amylase (04/26/17 12:01) BNP (04/26/17 12:01) Cbc With Automated Diff (04/26/17 12:01) Comprehensive Metabolic Panel (04/26/17 12:01) Magnesium (04/26/17 12:01) Protime With Inr (04/26/17 12:01) Partial Thromboplastin Time (04/26/17 12:01) Thyroid Analyzer (04/26/17 12:01) Troponin I (04/26/17 12:01) Ua Culture If Indicated (04/26/17 12:01) Chest 1 View, Ap/Pa Only (04/26/17 12:01) Ct Head Wo-R/O Stroke (04/26/17 12:28) Alcohol (04/26/17 12:28) Drug Screen Stat (Urine) (04/26/17 12:28) Vital Signs/I&O Vital Sign - Last 12Hours 04/26/17 11:28 Temp 98.8 Pulse 72 Resp 22 B/P (MAP) 138/92 (107) Pulse Ox 98 O2 Delivery Room Air Capillary Refill : Less Than 3 Seconds Blood Pressure Mean: 107 Departure Impression Impression: Primary Impression: Paresthesias Disposition: 01 HOME, SELF-CARE Condition: Improved Departure-Patient Inst. Referrals: [facility] (PCP/Family) Primary Care Physician Patient Instructions: Heart Healthy Diet, Paresthesias (DC) Add. Discharge Instructions: FOLLOW UP WITH [facility] THIS WEEK FOR FURTHER CARE All discharge instructions reviewed with patient and/or family. Voiced understanding. TOVA BROWN DO Apr 26, 2017 13:37
[2017-04-26 13:57] VITALS: BP 135/88
== END 2017-04-26 13:58 | disposition home or self-care (01) ==
LOC: EDUNIT# 11:17 → ER 11:21
DX: R20.2 Paresthesia of skin (principal); I10 Essential (primary) hypertension; F41.9 Anxiety disorder, unspecified; F31.9 Bipolar disorder, unspecified; F20.9 Schizophrenia, unspecified; G40.909 Epilepsy, unspecified, not intractable, without status epilepticus; G43.909 Migraine, unspecified, not intractable, without status migrainosus; F17.210 Nicotine dependence, cigarettes, uncomplicated; Z87.01 Personal history of pneumonia (recurrent); Z87.442 Personal history of urinary calculi; Z90.49 Acquired absence of other specified parts of digestive tract; Z86.14 Personal history of Methicillin resistant Staphylococcus aureus infection; Z87.19 Personal history of other diseases of the digestive system
CPT/HCPCS: 36415; 70450; 71045; 80053; 80306; 80320; 81000; 82150; 83735; 83880; 84443; 84484; 85025; 85610; 85730; 93005; 93041